=== PATIENT | female | born 1940 | race Caucasian/White ===

== ENCOUNTER 2020-07-20 08:33 | Inpatient (IN) | payer MEDICARE, OTHER ==
[~2020-07-20] VITALS: Ht 162.6 cm; Wt 87.1 kg
--- NOTE | 2020-07-20 08:35 | NUR ---
[id number] LFA/ L ELBOW PAIN S/P GLF. DENIES KO. PATIENT A/OX4, BREATHING EVEN AND UNLABORED, NO SOB NOTED. NEEDS ATTENDED. CHANGED INTO A GOWN, ATTACHED TO THE BARREL LINER.
--- NOTE | 2020-07-20 08:42 | NUR ---
DR. US AT BEDSIDE FOR EVAL.
[2020-07-20] MEDS ORDERED: ACETAMINOPHEN ES 500 MG TABLET ONE (08:48)
[2020-07-20] MEDS ORDERED: ACETAMINOPHEN ES 500 MG TABLET PO ONE (09:00)
[2020-07-20] MEDS ORDERED: ONDANSETRON HCL/PF 4 MG/2 ML VIAL ONE (09:27)
[2020-07-20] MEDS ORDERED: MORPHINE SULFATE INJ 2 MG/ML DISP.SYRIN ONE ×2 (09:27→10:29)
[2020-07-20] MEDS ORDERED: MORPHINE SULFATE INJ 2 MG/ML DISP.SYRIN IV ONE ×2 (09:30→10:30)
[2020-07-20] MEDS ORDERED: ONDANSETRON HCL/PF - ER 4 MG/2 ML VIAL IV ONE (09:30)
--- NOTE | 2020-07-20 09:41 | NUR ---
INGRIS MARES FOR CONSULT.
[2020-07-20 09:54] LABS: BASOPHILS % (AUTO) 0.4 % (0.0-2.0); EOSINOPHILS % (AUTO) 0.7 % (0.0-6.0); HEMATOCRIT 47 % (33-45); LYMPHOCYTES # (AUTO) 1.4 /CMM (0.8-4.8); MEAN CORPUSCULAR HGB CONC 32 g/dl (31.0-36.0); MEAN CORPUSCULAR VOLUME 91 fL (82-100); MONOCYTES # (AUTO) 0.9 /CMM (0.1-1.30); MONOCYTES % (AUTO) 7.5 % (2.0-12.0); NEUTROPHILS # (AUTO) 9.3 /CMM (1.8-8.9); NEUTROPHILS % (AUTO) 79.4 % (43.0-81.0); PLATELET COUNT (AUTO) 241 /CMM (150-450); RED BLOOD CELL COUNT(AUTO) 5.13 MIL/uL (4.0-5.2); WHITE BLOOD COUNT (AUTO) 11.7 K/uL (4.3-11.0)
[2020-07-20 10:00] LABS: CALCIUM, SERUM 9.7 mg/dL (8.5-10.1); CREATININE 0.7 mg/dL (0.6-1.3); POTASSIUM 4.2 mmol/L (3.5-5.1)
--- NOTE | 2020-07-20 10:19 | NUR ---
room 326-2
--- NOTE | 2020-07-20 10:25 | NUR ---
CALLED [facility] FOR HIGHER LEVEL OF CARE PRESENTATION OF CASE.
--- NOTE | 2020-07-20 10:37 | NUR ---
received a call from the lab regarding covid 19 result "negative".
--- NOTE | 2020-07-20 11:22 | NUR ---
received a call from Beckie ([facility] transfer center) and said "patient can be seen as an outpatient, and their MD decline the transfer". MD notified and aware.
--- NOTE | 2020-07-20 11:45 | NUR ---
SPOKE TO STACY FROM [facility] PER THEIR ER DOC PATIENT DOES NEED HIGHER LEVEL BUT NOT ER TO ER TRANSFER.
--- NOTE | 2020-07-20 12:00 | NUR ---
CALLED [facility] TO PRESENT CASE. FAXED OVER CLINICAL SCANS AND FACESHEET. WILL PRESENT TO THEIR DOCTORS.
--- NOTE | 2020-07-20 12:28 | NUR ---
CALLED [facility] FOR HIGHER LEVEL OF CARE TRANSFER. CALLED AND TRANSFERED TO [facility] TO SPEAK WITH TRAUMA SURGEON. PER DR. JAIN AT [facility], DOES NOT MEET TRAUMA CRITERIA.
--- NOTE | 2020-07-20 12:40 | NUR ---
RECEIVED CALL FROM LUTHER AT [facility], UNABLE TO ACCEPT PT DUE TO NO BED AVAILABILITY
--- NOTE | 2020-07-20 13:19 | NUR ---
PATIENT RESTING, NO DISTRESS NOTED.
--- NOTE | 2020-07-20 14:45 | NUR ---
PER DR. US PATIENT IS ACEPTED BY DR. KEY (ORTHO) PATIENT MADE AWARE.
[2020-07-20] MEDS ORDERED: ICOS1CAP PO (14:53)
[2020-07-20] MEDS ORDERED: AMLO2.5T4 PO (14:53)
[2020-07-20] MEDS ORDERED: METO25TA20 PO (14:53)
[2020-07-20] MEDS ORDERED: OMEP20CA15 PO (14:53)
[2020-07-20] MEDS ORDERED: TOLT1TAB2 PO (14:53)
[2020-07-20] MEDS ORDERED: LEVO75TA7 PO (14:53)
[2020-07-20] MEDS ORDERED: TRAM50TA2 PO (14:53)
[2020-07-20] MEDS ORDERED: IRBE75TA11 PO (14:53)
[2020-07-20] MEDS ORDERED: ROSU40TA23 PO (14:53)
--- NOTE | 2020-07-20 14:54 | NUR ---
REPORT GIVEN TO SLAVA MAYER FOR KATIE. (ROOM 326-2)
--- NOTE | 2020-07-20 15:34 | NUR ---
PATIENT TRANSFERRED TO ROOM 326-2 IN STABLE CONDITION.
--- NOTE | 2020-07-20 15:45 | NUR ---
MS RN NOTES PATIENT ADMITTED FROM EMERGENCY ROOM, REPORT GIVEN BY BABS MAYER. PATIENT ALERT ORIENTED X 4. NO ACUTE DISTRESS NOTED. IV ACCESS PATENT AND INTACT, NO REDNESS , NO SWELLING NOTED. DENIED ANY PAIN AT THIS TIME. LEFT ARM WITH SPLIT INTACT WITH PEPITO WRAP CHECKED HANDS WITH GOOD CIRCULATION. ORIENTED TO THE ROOM, SHOW HOW TO USE CALL LIGHT. NEEDS ATTENDED . SAFETY MEASURES IN PLACE. CALL LIGHT WITH IN REACH. WILL CONTINUE TO MONITOR ACCORDINGLY.
[2020-07-20] MEDS ORDERED: ONDANSETRON HCL/PF 4 MG/2 ML VIAL IVP PRN (16:00)
[2020-07-20] MEDS ORDERED: MAGNESIUM HYDROXIDE 30 ML UDC PO PRN (16:00)
[2020-07-20] MEDS ORDERED: ACETAMINOPHEN 325 MG TABLET PO PRN (16:00)
[2020-07-20] MEDS ORDERED: Z GUARD REMEDY 2 OZ OINT TP PRN (16:00)
[2020-07-20] MEDS ORDERED: MAG HYDROX/AL HYDROX/SIMETH 30 ML UDC PO PRN (16:00)
[2020-07-20] MEDS ORDERED: Medication Not On Formulary EA (Irbesartan (Avapro) 75 MG) PO SCH (17:00)
[2020-07-20] MEDS: METOPROLOL TARTRATE 25 MG TABLET PO SCH (17:31)
[2020-07-20] MEDS: AMLODIPINE BESYLATE 2.5 MG TABLET PO SCH (17:31)
[2020-07-20] MEDS: LOSARTAN POTASSIUM 25 MG TABLET PO SCH (17:32)
[2020-07-20] MEDS: HYDROCODONE/APAP 5/325MG TABLET PO PRN ×2 (17:36→22:00)
--- NOTE | 2020-07-20 17:50 | NUR ---
MS RN NOTES PATIENT VTE SCORE 3, NOTIFIED DR ALEJANDRO LONDON WITH [facility] ORDER FOR SCD PUMP FOR NOW, ORDER CLARIFIED AND READ BACK WITH MD, NOTED AND CARRIED OUT
--- NOTE | 2020-07-20 19:00 | NUR ---
MS RN NOTES PATIENT IN BED ALERT ORIENTED X 4. NO ACUTE DISTRESS NOTED. IV ACCESS PATENT AND INTACT, NO REDNESS , NO SWELLING NOTED. DENIED ANY PAIN AT THIS TIME. LEFT ARM WITH SPLIT INTACT WITH PEPITO WRAP CHECKED HANDS WITH GOOD CIRCULATION. NEEDS ATTENDED AND ANTICIPATED. SAFETY MEASURES IN PLACE. CALL LIGHT WITHIN REACH. WILL ENDORSE TO NIGHT NURSE FOR CONTINUITY OF CARE.
--- NOTE | 2020-07-20 19:40 | NUR ---
MS/RN OPENING NOTE RECEIVED PATIENT RESTING IN BED. AWAKE, ALERT AND ORIENTED X 4. ABLE TO MAKE NEEDS KNOWN. NO COMPLAINTS OF PAIN AT THIS TIME. LEFT ARM SPLINT WITH PEPITO WRAP INTACT WITH POSITIVE CIRCULATION TO LUE. IV ACCESS TO RIGHT AC INTACT, PATENT AND SALINE LOCKED. CONTINUES ON ROOM AIR WITH NO S/SX OF RESPIRATORY DISTRESS NOTED. CALL LIGHT WITHIN REACH. ASPIRATION, FALL AND SAFETY PRECAUTIONS MAINTAINED. WILL CONTINUE TO MONITOR.
[2020-07-20 20:00] VITALS: BP 131/72
[2020-07-20] MEDS: MORPHINE SULFATE INJ 2 MG/ML DISP.SYRIN IV PRN (20:25)
--- NOTE | 2020-07-20 20:30 | NUR ---
MS/RN NOTE PATIENT WITH C/O PAIN TO LEFT UPPER EXTREMITY - ADMINISTERED PRN MORPHINE WITH PENDING EFFECT.
[2020-07-20] MEDS: ATORVASTATIN 40 MG TABLET PO SCH (22:00)
[2020-07-21] MEDS: MORPHINE SULFATE INJ 2 MG/ML DISP.SYRIN IV PRN ×2 (02:24→06:51)
[2020-07-21] MEDS: HYDROCODONE/APAP 5/325MG TABLET PO PRN (04:51)
--- NOTE | 2020-07-21 06:35 | NUR ---
MS/RN CLOSING NOTE PATIENT CURRENTLY RESTING IN BED. AWAKE, ALERT AND ORIENTED X 4. ABLE TO MAKE NEEDS KNOWN. COMPLAINTS OF PAIN TO LEFT ARM - ADMINISTERED MORPHINE WITH POSITIVE EFFECT. LEFT ARM SPLINT WITH PEPITO WRAP INTACT WITH POSITIVE CIRCULATION TO LUE. IV ACCESS TO RIGHT AC INTACT, PATENT AND SALINE LOCKED. CONTINUES ON ROOM AIR WITH NO S/SX OF RESPIRATORY DISTRESS NOTED. CALL LIGHT WITHIN REACH. ASPIRATION, FALL AND SAFETY PRECAUTIONS MAINTAINED. WILL ENDORSE PLAN OF CARE TO ONCOMING SHIFT.
[2020-07-21 06:44] LABS: BASOPHILS % (AUTO) 0.3 % (0.0-2.0); EOSINOPHILS % (AUTO) 0.7 % (0.0-6.0); HEMATOCRIT 42 % (33-45); HEMOGLOBIN 13.5 g/dL (11.5-14.8); LYMPHOCYTES # (AUTO) 1.4 /CMM (0.8-4.8); LYMPHOCYTES % (AUTO) 12.7 % (20.0-44.0); MEAN CORPUSCULAR HGB CONC 33 g/dl (31.0-36.0); MEAN CORPUSCULAR VOLUME 90 fL (82-100); MONOCYTES # (AUTO) 1.3 /CMM (0.1-1.30); MONOCYTES % (AUTO) 11.4 % (2.0-12.0); NEUTROPHILS # (AUTO) 8.3 /CMM (1.8-8.9); NEUTROPHILS % (AUTO) 74.9 % (43.0-81.0); PLATELET COUNT (AUTO) 235 /CMM (150-450); RED BLOOD CELL COUNT(AUTO) 4.61 MIL/uL (4.0-5.2); WHITE BLOOD COUNT (AUTO) 11.1 K/uL (4.3-11.0)
[2020-07-21 07:09] LABS: CALCIUM, SERUM 8.8 mg/dL (8.5-10.1); CREATININE 0.8 mg/dL (0.6-1.3); PHOSPHORUS 3.8 mg/dL (2.5-4.9); POTASSIUM 3.8 mmol/L (3.5-5.1)
--- NOTE | 2020-07-21 07:30 | NUR ---
RN OPENING NOTE RECEIVED PATIENT RESTING IN BED. AWAKE, ALERT AND ORIENTED X 4. ABLE TO MAKE NEEDS KNOWN. NO COMPLAINTS OF DISCOMFORT OR DISTRESS AT THIS TIME. LEFT ARM SPLINT WITH PEPITO WRAP INTACT WITH POSITIVE CIRCULATION TO LUE. IV ACCESS TO RIGHT AC INTACT AND SALINE LOCKED. CONTINUES ON ROOM AIR WITH NO S/SX OF RESPIRATORY DISTRESS NOTED. CALL LIGHT WITHIN REACH. ASPIRATION, FALL AND SAFETY PRECAUTIONS MAINTAINED. WILL REMAIN NPO FOR POSSIBLE ORIF OF THE LEFT ULNA. NEEDS MET AT THIS TIME.
[2020-07-21 08:00] VITALS: BP 142/71
[2020-07-21] MEDS ORDERED: FENTANYL PF 250MCG/5ML AMPUL ONE (08:25)
[2020-07-21] MEDS ORDERED: BUPIVACAINE 0.5 % PF 150 MG/30 ML VIAL ONE ×2 (08:26→08:35)
[2020-07-21] MEDS ORDERED: MIDAZOLAM HCL 2 MG/2ML VIAL ONE (08:26)
[2020-07-21] MEDS ORDERED: FAMOTIDINE/PF INJ 20 MG/2 ML VIAL IV ONE (08:26)
[2020-07-21] MEDS ORDERED: ANESTHESIA TRAY IN PYXIS 1 EA TRAY MC ONE (08:35)
[2020-07-21] MEDS ORDERED: VANCOMYCIN 1 GM VIAL ONE (08:35)
[2020-07-21] MEDS ORDERED: BACITRACIN 50000 UNITS/VIAL ONE (08:35)
[2020-07-21] MEDS ORDERED: SEVOFLURANE 250 ML BOTTLE IH ONE (08:38)
[2020-07-21 08:57] LABS: THYROID STIMULATING HORMONE 3.746 uIU/mL (0.358-3.74)
[2020-07-21] MEDS: METOPROLOL TARTRATE 25 MG TABLET PO SCH ×2 (09:00→17:36)
[2020-07-21] MEDS ORDERED: Medication Not On Formulary EA (Icosapent Ethyl (Vascepa) 2 CAP) PO SCH (09:00)
[2020-07-21] MEDS: AMLODIPINE BESYLATE 2.5 MG TABLET PO SCH ×2 (09:00→17:37)
[2020-07-21] MEDS: LOSARTAN POTASSIUM 25 MG TABLET PO SCH ×2 (09:00→17:36)
[2020-07-21] MEDS ORDERED: Medication Not On Formulary EA (Rosuvastatin Calcium 40 MG) PO SCH (09:00)
--- NOTE | 2020-07-21 09:30 | NUR ---
PATIENT MET WITH DR. KEY AND DISCUSSED PROCEDURE, PROGNOSIS AND DISCHARGE PLAN. PATIENT CONSENTED FOR ORIF OF THE LEFT ULNA. TRANSFERRED BY OR NURSES TO PREOP AREA IN STABLE CONDITION. REMAINS ALERT, ORIENTED. ROOM AIR. NO S/S OF DISCOMFORT OR DISTRESS. BELONGINGS LEFT IN ROOM. WILL AWAIT RETURN FROM OR TO ROOM.
[2020-07-21] MEDS ORDERED: BUPIVACAINE 0.25% 75 MG/30 ML VIAL ONE (11:17)
--- NOTE | 2020-07-21 13:30 | NUR ---
Patient returned to room from OR. No s/s of discomfort or distress. Dressing to left arm c/d/i. IV to right antecubital patent with dressing c/d/i. Lunch provided. Orders reviewed and carried. Needs met at this time. Will continue POC.
[2020-07-21] MEDS: IV D5/0.45 NACL W/20 MEQ KCL 1L IV SCH (14:46)
[2020-07-21] MEDS: LEVOTHYROXINE SODIUM 75 MCG TABLET PO SCH (14:46)
[2020-07-21] MEDS: TOLTERODINE 2 MG TABLET PO SCH (14:47)
[2020-07-21] MEDS ORDERED: ASPI-1420 PO (15:26)
--- NOTE | 2020-07-21 15:36 | NUR ---
MS RN NOTES RECEIVED PATIENT FOR KATIE FROM [facility]. PATIENT MEDICALLY STABLE AT THIS TIME. WILL CONTINUE TO MONITOR.
[2020-07-21 16:00] VITALS: BP 146/78
[2020-07-21] MEDS: HYDROCODONE/APAP 10/325MG TABLET PO PRN (16:09)
--- NOTE | 2020-07-21 16:10 | NUR ---
MS RN NOTES PATIENT STATES PAIN 7 OUT OF 10 IN HER ARM (POST OPERATIVELY); REQUESTING PAIN MEDICATION. PRN NORCO [phone] ADMINISTERED PER MD ORDER. WILL REASSESS.
[2020-07-21] MEDS: ANCEF 1 GM/50 ML D5W IV SCH (17:51)
--- NOTE | 2020-07-21 18:08 | NUR ---
RN NOTES PAIN MEDICATION EFFECTIVE, PATIENT STATES SHE FEELS GOOD AND NO PAIN AT THIS TIME, WILL CONTINUE TO MONITOR , ALL VS IN NORMAL BASELINE RANGE, CALL LIGHT IN REACH.
[2020-07-21] MEDS: MENTHOL/CETYLPYRD (CEPACOL) 1 LOZ LOZENGE PO PRN ×2 (18:46→23:08)
--- NOTE | 2020-07-21 19:22 | NUR ---
MS RN NOTES PATIENT IN BED. A/OX4. NO S/S OF DISTRESS. NO C/O PAIN AT THE MOMENT. R. HAND IV PLACE RUNNING POTASSIUM CHLORIDE @75MLS/HR NOTED. SAFETY IN PLACE: BED IN LOCKED POSITION, CALL LIGHT WITHIN REACH. WILL CONTINUE TO MONITOR.
[2020-07-21 20:00] VITALS: BP 124/65
[2020-07-21] MEDS: MORPHINE SULFATE INJ 4 MG/ML DISP.SYRIN IV PRN ×2 (20:29→23:01)
--- NOTE | 2020-07-21 20:37 | NUR ---
MS RN NOTES PATIENT REPORTED 8/10 PAIN. GIVEN MORPHINE 4MG/ML PRN. WILL REASSESS.
[2020-07-21] MEDS: ATORVASTATIN 40 MG TABLET PO SCH (21:55)
--- NOTE | 2020-07-21 23:24 | NUR ---
MS RN NOTES PATIENT C/O PAIN AFTER CHANGING OF LINEN/POSITION. PAIN 9/10. GIVEN MORPHINE PRN. WILL REASSESS.
[2020-07-22 00:16] VITALS: BP 124/65
[2020-07-22] MEDS: ANCEF 1 GM/50 ML D5W IV SCH (01:49)
[2020-07-22] MEDS: MORPHINE SULFATE INJ 4 MG/ML DISP.SYRIN IV PRN (01:58)
--- NOTE | 2020-07-22 02:19 | NUR ---
MS RN NOTES PATIENT ASKED FOR PAIN MEDICATION. REPORTED 8/10 PAIN ON ADULT PAIN SCALE. GIVEN MORPHINE PRN. WILL REASSESS.
[2020-07-22] MEDS: IV D5/0.45 NACL W/20 MEQ KCL 1L IV SCH (05:57)
--- NOTE | 2020-07-22 06:52 | NUR ---
MS RN CLOSING NOTES PATIENT IN BED. A/OX4. NO S/S OF DISTRESS. TOLERATING ROOM AIR. PATIENT BEEN COMPLAINING OF PAIN AND ASKING PAIN MEDICATION AROUND THE CLOCK. ABLE TO MAKE NEEDS KNOWN. ALL SCHEDULED MEDS ADMINISTERED. PRN MEDS ADMINISTERED. ALL NEEDS ATTENDED. R. HAND IV LINE RUNNING POTASSIUM CHLORIDE @75 MLS/HR. SAFETY KEPT IN PLACE THE WHOLE SHIFT: BED IN LOWEST, LOCKED POSITION; CALL LIGHT WITHIN REACH. NO SIGNIFICANT CHANGE SINCE LAST SHIFT. WILL ENDORSE CARE TO MORNING SHIFT NURSE.
[2020-07-22 08:00] VITALS: BP 158/87
[2020-07-22 08:52] LABS: BASOPHILS % (AUTO) 0.1 % (0.0-2.0); EOSINOPHILS % (AUTO) 0.4 % (0.0-6.0); HEMATOCRIT 45 % (33-45); HEMOGLOBIN 14.6 g/dL (11.5-14.8); LYMPHOCYTES % (AUTO) 6.1 % (20.0-44.0); MEAN CORPUSCULAR HGB CONC 32 g/dl (31.0-36.0); MEAN CORPUSCULAR VOLUME 91 fL (82-100); MONOCYTES # (AUTO) 1.5 /CMM (0.1-1.30); MONOCYTES % (AUTO) 9.2 % (2.0-12.0); NEUTROPHILS # (AUTO) 13.8 /CMM (1.8-8.9); NEUTROPHILS % (AUTO) 84.2 % (43.0-81.0); PLATELET COUNT (AUTO) 245 /CMM (150-450); WHITE BLOOD COUNT (AUTO) 16.3 K/uL (4.3-11.0)
[2020-07-22 09:00] LABS: CALCIUM, SERUM 9.6 mg/dL (8.5-10.1); CREATININE 0.7 mg/dL (0.6-1.3); POTASSIUM 4.2 mmol/L (3.5-5.1)
[2020-07-22] MEDS: LEVOTHYROXINE SODIUM 75 MCG TABLET PO SCH (09:03)
[2020-07-22] MEDS: LOSARTAN POTASSIUM 25 MG TABLET PO SCH ×2 (09:04→16:05)
[2020-07-22] MEDS: METOPROLOL TARTRATE 25 MG TABLET PO SCH ×2 (09:04→16:06)
[2020-07-22 09:05] LABS: ALBUMIN 3.6 g/dL (3.4-5.0); BILIRUBIN,TOTAL 0.6 mg/dL (0.2-1.0); PHOSPHORUS 2.3 mg/dL (2.5-4.9); TOTAL PROTEIN, SERUM 7.3 g/dL (6.4-8.2)
[2020-07-22] MEDS: ASPIRIN 81 MG TAB.CHEW PO SCH (09:05)
[2020-07-22] MEDS: AMLODIPINE BESYLATE 2.5 MG TABLET PO SCH ×2 (09:05→16:05)
--- NOTE | 2020-07-22 09:43 | NUR ---
MS RN OPENING NOTES PATIENT IS IN BED SLEEPING, PATIENT IS IN NO ACUTE DISTRESS. PATIENT IS ON ROOM AIR, NO SOB NOTED. PATIENT HAS SPLINT ON THE LEFT ARM, AFTER SURGERY. SAFETY PRECAUTIONS ARE ON, BED IN THE LOWEST POSITION WITH SIDE RAILS UP, CALL LIGHT WITHIN REACH. WILL CONTINUE TO MONITOR CLOSELY.
--- NOTE | 2020-07-22 09:54 | NUR ---
MS RN NOTE PATIENT SCHEDULED MEDICATION DETROL 1MG IS NOT AVAILABLE, MADE PHARMACY AWARE, INFORMED ME THEY WILL BRING IT UP.
[2020-07-22] MEDS: TOLTERODINE 2 MG TABLET PO SCH (10:52)
[2020-07-22] MEDS: HYDROCODONE/APAP 10/325MG TABLET PO PRN ×2 (10:52→16:05)
[2020-07-22] MEDS ORDERED: NEUTRA PHOS 1 POWD.PACKET PO ONE (11:00)
[2020-07-22 16:33] VITALS: BP 140/72
--- NOTE | 2020-07-22 18:43 | NUR ---
MS RN OPENING NOTES PATIENT IS IN BED RESTING, PATIENT IS IN NO ACUTE DISTRESS. PATIENT IS ON ROOM AIR, NO SOB NOTED. PATIENT HAS SPLINT ON THE LEFT ARM, AFTER SURGERY. SAFETY PRECAUTIONS ARE ON, BED IN THE LOWEST POSITION WITH SIDE RAILS UP, CALL LIGHT WITHIN REACH. ENDORSE PATIENT TO FILTRATION OPERATOR NURSE FOR KATIE. Addendum: 07/22/20 at 1844 by TONI LARIOS RN MS RN CLOSING NOTES PATIENT IS IN BED RESTING, PATIENT IS IN NO ACUTE DISTRESS. PATIENT IS ON ROOM AIR, NO SOB NOTED. PATIENT HAS SPLINT ON THE LEFT ARM, AFTER SURGERY. SAFETY PRECAUTIONS ARE ON, BED IN THE LOWEST POSITION WITH SIDE RAILS UP, CALL LIGHT WITHIN REACH. ENDORSE PATIENT TO FILTRATION OPERATOR NURSE FOR KATIE.
--- NOTE | 2020-07-22 19:14 | NUR ---
MS RN OPENING NOTES PATIENT IN BED READING HER BOOK. A/OX4. NO S/S OF DISTRESS. NO C/O OF PAIN AT THE MOMENT. SPLINT ON THE L. ARM NOTED. SAFETY PRECAUTIONS IN PLACE: BED IN LOWEST, LOCKED POSITION; CALL LIGHT WITHIN REACH. PATIENT ORIENTED ABOUT CALL LIGHT USE AND PATIENT ACKNOWLEDGE HOW TO USE IT. WILL CONTINUE TO MONITOR.
[2020-07-22 20:00] VITALS: BP 142/71
[2020-07-22 20:47] VITALS: BP 142/71
[2020-07-22] MEDS: ATORVASTATIN 40 MG TABLET PO SCH (21:22)
[2020-07-23 06:32] LABS: BASOPHILS % (AUTO) 0.2 % (0.0-2.0); EOSINOPHILS % (AUTO) 1.4 % (0.0-6.0); HEMATOCRIT 46 % (33-45); HEMOGLOBIN 14.9 g/dL (11.5-14.8); LYMPHOCYTES # (AUTO) 0.9 /CMM (0.8-4.8); LYMPHOCYTES % (AUTO) 5.5 % (20.0-44.0); MEAN CORPUSCULAR HGB CONC 33 g/dl (31.0-36.0); MEAN CORPUSCULAR VOLUME 90 fL (82-100); MONOCYTES # (AUTO) 1.9 /CMM (0.1-1.30); MONOCYTES % (AUTO) 11.9 % (2.0-12.0); NEUTROPHILS # (AUTO) 12.8 /CMM (1.8-8.9); PLATELET COUNT (AUTO) 262 /CMM (150-450); RED BLOOD CELL COUNT(AUTO) 5.07 MIL/uL (4.0-5.2); WHITE BLOOD COUNT (AUTO) 15.8 K/uL (4.3-11.0)
[2020-07-23 06:54] LABS: CALCIUM, SERUM 9.7 mg/dL (8.5-10.1); CREATININE 0.9 mg/dL (0.6-1.3); PHOSPHORUS 4.2 mg/dL (2.5-4.9); POTASSIUM 3.8 mmol/L (3.5-5.1)
--- NOTE | 2020-07-23 07:25 | NUR ---
MS RN OPENING NOTES PATIENT IN BED RESTING. A/OX4. NO S/S OF DISTRESS. NO C/O OF PAIN AT THE MOMENT. SPLINT ON THE L. ARM NOTED. SAFETY PRECAUTIONS IN PLACE: BED IN LOWEST, LOCKED POSITION; CALL LIGHT WITHIN REACH AND ANSWERED PROMPTLY.
[2020-07-23] MEDS ORDERED: PANTOPRAZOLE 40 MG TABLET.DR PO SCH (07:30)
--- NOTE | 2020-07-23 07:32 | NUR ---
MS RN CLOSING NOTES PATIENT IN BED. A/OX4. NO S/S OF DISTRESS. TOLERATING ROOM AIR. ABLE TO MAKE NEEDS KNOWN. ALL SCHEDULED MEDS ADMINISTERED. PRN MEDS ADMINISTERED. ALL NEEDS ATTENDED. SAFETY KEPT IN PLACE THE WHOLE SHIFT: BED IN LOWEST, LOCKED POSITION; CALL LIGHT WITHIN REACH. NO SIGNIFICANT CHANGE SINCE LAST SHIFT. ENDORSED CARE TO MORNING SHIFT NURSE.
[2020-07-23 08:00] VITALS: BP 135/87
[2020-07-23] MEDS: MORPHINE SULFATE INJ 4 MG/ML DISP.SYRIN IV PRN (08:29)
[2020-07-23] MEDS: LOSARTAN POTASSIUM 25 MG TABLET PO SCH (08:29)
[2020-07-23] MEDS: ASPIRIN 81 MG TAB.CHEW PO SCH (08:30)
[2020-07-23] MEDS: AMLODIPINE BESYLATE 2.5 MG TABLET PO SCH (08:30)
[2020-07-23] MEDS: LEVOTHYROXINE SODIUM 75 MCG TABLET PO SCH (08:30)
[2020-07-23 08:31] VITALS: BP 136/84
[2020-07-23] MEDS: METOPROLOL TARTRATE 25 MG TABLET PO SCH (08:31)
[2020-07-23] MEDS: TOLTERODINE 2 MG TABLET PO SCH (08:34)
[2020-07-23] MEDS ORDERED: ASPIRIN EC 81 MG TABLET.DR PO SCH (09:00)
--- NOTE | 2020-07-23 16:23 | NUR ---
MSRN NOTES PATIENT LEFT HOSPITAL AT 1600, ALL BELONGINGS ACCOUNTED FOR , REPORT GIVEN TO NURSE AT [facility] , REPORT GIVEN TO SPINNING OPERATOR. PATIENT LEFT ON [facility] WITH FACE SHEET AND BELONGINGS.
[2020-08-13] MEDS ORDERED: NA P133E RC (15:25)
[2020-08-13] MEDS ORDERED: MAGN400O6 PO (15:25)
[2020-08-13] MEDS ORDERED: OXYB-58 PO (15:25)
[2020-08-13] MEDS ORDERED: DOCU250C14 PO (15:25)
[2020-08-13] MEDS ORDERED: MAG30ORA PO (15:25)
[2020-08-13] MEDS ORDERED: ACET-2605 PO (15:25)
[2020-08-13] MEDS ORDERED: ASCO-352 PO (15:25)
[2020-08-13] MEDS ORDERED: ONDA4TAB5 PO (15:25)
[2020-08-13] MEDS ORDERED: ASPI-1169 PO (15:25)
[2020-08-13] MEDS ORDERED: FAMO20TA8 PO (15:25)
[2020-08-13] MEDS ORDERED: CRAN425C6 PO (15:25)
[2020-08-13] MEDS ORDERED: ACET-868 PO (15:25)
[2020-08-13] MEDS ORDERED: ZINC1CAP3 PO (15:25)
[2020-08-13] MEDS ORDERED: MULT-447 PO (15:25)
[2020-08-15] MEDS ORDERED: CEFT1VIA15 IV (08:26)
== END 2020-07-23 16:00 | DRG 512 ==
LOC: ER 08:35 → UNDOADMIN 10:20 → MED 10:20 → TELE 15:26 → MED 16:29
PROVIDERS: ADMIT Internal Medicine; ATTEND Internal Medicine
PROC: 0PBJ0ZZ Excision of Left Radius, Open Approach (ICD-10-PCS; principal; 2020-07-21)
PROC: 0PSL04Z Reposition Left Ulna with Internal Fixation Device, Open Approach (ICD-10-PCS; 2020-07-21)
DX: S52.612A Displaced fracture of left ulna styloid process, initial encounter for closed fracture (principal); S52.132A Displaced fracture of neck of left radius, initial encounter for closed fracture; W01.0XXA Fall on same level from slipping, tripping and stumbling without subsequent striking against object, initial encounter; I25.10 Atherosclerotic heart disease of native coronary artery without angina pectoris; I10 Essential (primary) hypertension; E78.5 Hyperlipidemia, unspecified; E03.9 Hypothyroidism, unspecified; Z20.822 Contact with and (suspected) exposure to COVID-19; X58.XXXA Exposure to other specified factors, initial encounter; Y93.9 Activity, unspecified; Y92.481 Parking lot as the place of occurrence of the external cause
CPT/HCPCS: 36415; 71045-TC; 73070-TC; 73110; 80048-TC; 80053-TC; 80061-TC; 83735-TC; 84100-TC; 84439-TC; 84443-TC; 85025-TC; 85610-TC; 85730-TC; 87081-TC; 88305-TC; 88311-TC; 93307-TC; 97116-TC; 97530-TC; A4565; A6253; A6402; C1713; C9803; G0378; J0690; J2250; J2270; J2405; J2704; J2765; J3010; J3370; J3480; J3490; J7050; J7060